=== PATIENT | female | born 1955 | race Caucasian/White ===

== ENCOUNTER 2017-06-21 14:27 | Emergency (ER) | payer OTHER ==
[~2017-06-21] VITALS: Ht 157.5 cm; Wt 88.0 kg
[~2017-06-21 14:27] MED LIST: AMLO-145 PO; BISO1TAB79 PO; LISI20TA11 PO
[2017-06-21 14:31] VITALS: Ht 157.5 cm; Wt 88.0 kg
[2017-06-21] MEDS ORDERED: predniSONE 20 MG TAB PO STA (15:23)
[2017-06-21] MEDS ORDERED: LEVALBUTEROL (NEB) 1.25 MG/0.5 ML AMP INH STA (15:23)
[2017-06-21] MEDS ORDERED: IPRATROPIUM (NEB) 0.5 MG/2.5 ML AMP INH STA (15:23)
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
--- NOTE | 2017-06-21 18:07 | RADRPT ---
PROCEDURE: XR Chest. CLINICAL INDICATION: Asthma exacerbation. TECHNIQUE: Single AP portable chest. COMPARISON: 12/25/2014 Chest x-ray FINDINGS: The cardiomediastinal silhouette is within normal limits of size. Atherosclerotic calcification of t he aorta. The lungs are clear without pleural effusion or focal consolidation. No pneumothorax. The osseous structures and soft tissues are unremarkable. IMPRESSION: 1. No evidence for active cardiopulmonary disease. RPTAT:AAJJ Physician Juan C Date Time Electronically viewed and signed by Physician Juan C on 06/21/2017 18:07 KISHAN/
[2017-06-21 18:20] VITALS: BP 127/62; PULSE 85; RESP 16
[2017-06-21] MEDS ORDERED: PRED20TA PO (18:24)
[2017-06-21] MEDS ORDERED: ALBU8.5H3 INH (18:24)
[2017-06-21] MEDS ORDERED: AZIT250T94 PO (18:25)
[2017-06-21] MEDS ORDERED: UDROBDM PO (18:25)
[2017-06-21 18:31] VITALS: TEMP 98.2
== END 2017-06-21 18:39 | disposition home or self-care (01) ==
LOC: FTE 14:27
DX: R05 Cough (principal); I10 Essential (primary) hypertension
CPT/HCPCS: 71010; 94644; J7512; Z7502; Z7610